=== PATIENT | female | born 1950 | race Caucasian/White ===

== ENCOUNTER → 2023-02-04 | Outpatient (REF) | payer OTHER ==
[2023-02-04 18:45] LABS: CREATININE, URINE 60.8 MG/DL; MAU/CREAT RATIO 243.4 MCG/MG (0.0-30.0)
== END ==
LOC: M LAB REF 16:58
PROVIDERS: ATTEND Nurse Practitioner Family
DX: E11.65 Type 2 diabetes mellitus with hyperglycemia (principal)
CPT/HCPCS: 82043; G0463

== ENCOUNTER → 2023-03-05 | Outpatient (REF) | payer OTHER ==
[2023-03-05 18:29] LABS: APPEARANCE, URINE HAZY (CLEAR); BACTERIA, URINE AUTO NEGATIVE (NEGATIVE); BILIRUBIN, URINE AUTO NEGATIVE (NEGATIVE); BLOOD, URINE BLOOD 3+ (NEGATIVE); COLOR, URINE YELLOW (YELLOW); GLUCOSE, URINE (UA) AUTO NEGATIVE (NEGATIVE); KETONE, URINE AUTO NEGATIVE (NEGATIVE); LEUKOCYTE ESTERASE, URINE AUTO 1+ (NEGATIVE); MUCUS, URINE SMALL (NEGATIVE); NITRITE, URINE AUTO NEGATIVE (NEGATIVE); PROTEIN, URINE AUTO 2+ mg/dL (NEGATIVE); RBC, URINE AUTO 126 /HPF (0-3); SQUAMOUS EPITHELIAL CELL UR AU 0 /HPF (0-6); UROBILINOGEN, URINE AUTO 0.2 mg/dL (0.0-2.0); WBC, URINE AUTO 13 /HPF (0-3)
== END ==
LOC: M SMT 18:01
PROVIDERS: ATTEND Urology
DX: Z87.440 Personal history of urinary (tract) infections (principal)
CPT/HCPCS: 52000; 81001; 87086; G0463

== ENCOUNTER → 2023-05-10 | Outpatient (REF) | payer OTHER ==
[~2023-05-10] MED LIST: ATOR40TA75 PO; ERGO500029 PO; GABA-282 PO; LANTINJ4 SC; LOSA100T46 PO; MIRA0.5T PO; TRAM50TA2 PO; TRUL0.5I SC; VITMTA PO; XIID5DRO OU
== END ==
LOC: M LAB REF 16:23
PROVIDERS: ATTEND Podiatrist Foot & Ankle Surgery
DX: L03.115 Cellulitis of right lower limb (principal)

== ENCOUNTER 2023-05-13 14:05 | Inpatient (IN) | payer MEDICARE, OTHER ==
[~2023-05-13] VITALS: Ht 172.7 cm; Wt 87.7 kg
[~2023-05-13 14:05] MED LIST changes: -ATOR40TA75 PO; -ERGO500029 PO; -GABA-282 PO; -LANTINJ4 SC; -LOSA100T46 PO; -MIRA0.5T PO; -TRAM50TA2 PO; -TRUL0.5I SC; +UNRESOLVED CLARIFICATION ENTRY XX SCH; -VITMTA PO; -XIID5DRO OU
[2023-05-13 14:55] VITALS: BP 151/85; TEMP 97.2; O2SAT 99
[2023-05-13] MEDS ORDERED: GLUCAGON INJ 1MG VIAL SC PRN (15:15)
[2023-05-13] MEDS ORDERED: GLUCOSE 4GM CHEW TABLET PO PRN (15:15)
[2023-05-13] MEDS ORDERED: MORPHINE 4 MG/ML 1ML VIAL IV PRN (15:15)
[2023-05-13] MEDS ORDERED: DEXTROSE 50% 50ML SYRINGE IV PRN (15:15)
[2023-05-13] MEDS ORDERED: ACETAMINOPHEN 650MG SUPP PR PRN (15:15)
[2023-05-13] MEDS ORDERED: KETOROLAC 30 MG/ML 1ML VIAL IV PRN (15:15)
[2023-05-13 15:49] LABS: BASO # 0.1 10^3/uL (0.0-0.2); BASO % 0.3 % (0.0-1.0); HEMATOCRIT 35.1 % (36.0-47.0); HEMOGLOBIN 11.6 g/dl (12.0-15.5); LYMPH # 1.5 10^3/uL (1.5-5.0); LYMPH % 4.9 % (24.0-44.0); MEAN CORPUSCULAR HEMOGLOBIN 31.6 pg (27.0-33.0); MEAN CORPUSCULAR VOLUME 95.6 fl (80.0-96.0); MONO # 1.1 10^3/uL (0.0-0.8); MONO % 3.7 % (2.0-8.0); NEUTROPHILS # 26.5 10^3/uL (1.5-8.5); NEUTROPHILS % 88.3 % (36.0-66.0); PLATELET COUNT, AUTOMATED 633 10^3/uL (150-450); RED BLOOD COUNT 3.67 10^6/uL (4.00-5.40)
[2023-05-13 15:59] LABS: INR 1.13; PROTHROMBIN TIME 14.2 SECONDS (12.5-14.5)
[2023-05-13 16:00] LABS: PARTIAL THROMBOPLASTIN TIME 35.4 SECONDS (24.8-34.2)
[2023-05-13] MEDS ORDERED: NS 1,000 ML IV ONE (16:00)
[2023-05-13 16:26] LABS: ALBUMIN 2.5 G/DL (3.2-5.2); ALKALINE PHOSPHATASE 135 U/L (46-116); ALT/SGPT 34 U/L (7.0-40); AST/SGOT 17 U/L (<34); BILIRUBIN,TOTAL 0.4 MG/DL (0.3-1.2); BLOOD UREA NITROGEN 23 MG/DL (9-23); CALCIUM LEVEL 8.6 MG/DL (8.3-10.6); CARBON DIOXIDE LEVEL 17 MMOL/L (20-31); CHLORIDE LEVEL 107 MMOL/L (98-107); CREATININE FOR GFR 1.04 MG/DL (0.55-1.30); GLOMERULAR FILTRATION RATE 55.8 (>39); GLUCOSE, FASTING 215 MG/DL (74-106); MAGNESIUM LEVEL 1.8 MG/DL (1.8-2.4); POTASSIUM SERUM 3.3 MMOL/L (3.5-5.1); SODIUM LEVEL 136 MMOL/L (136-145); TOTAL PROTEIN 6.5 G/DL (5.7-8.2)
[2023-05-13] MEDS ORDERED: propofoL 500 MG/50 ML VIAL ONE (16:37)
[2023-05-13] MEDS ORDERED: MIDAZOLAM INJ 2MG/2ML VIAL ONE (16:39)
[2023-05-13 16:42] LABS: PROCALCITONIN >50.00 ng/ml
[2023-05-13 17:06] LABS: ERYTHROCYTE SEDIMENTATION RATE > 130 mm/hr (0-30)
[2023-05-13] MEDS ORDERED: KCL 40MEQ in NS 1000ML 1,000 ML IV SCH (17:10)
[2023-05-13] MEDS ORDERED: INSULIN LISPRO (NovoLOG) PER UNIT SC SCH (18:00)
[2023-05-13] MEDS ORDERED: fentaNYL 100 MCG/2 ML INJECTION IV PRN (18:05)
[2023-05-13] MEDS ORDERED: HYDROMORPHONE HCL 0.5 MG/ 0.5 ML SYRINGE IV PRN (18:05)
[2023-05-13] MEDS ORDERED: oxyCODONE 5MG TAB PO PRN (18:05)
[2023-05-13] MEDS ORDERED: LR 1,000 ML IV SCH (18:05)
[2023-05-13] MEDS ORDERED: ONDANSETRON 4MG 2ML VIAL IV PRN (18:05)
[2023-05-13] MEDS ORDERED: ZOSYN 4.5GM VIAL As Ordered ONE (18:09)
[2023-05-13] MEDS ORDERED: LIDOCAINE 1% SDV 30ML VIAL As Ordered ONE (18:09)
[2023-05-13 18:45] VITALS: BP 142/84; TEMP 97.7; O2SAT 97
[2023-05-13 20:56] VITALS: BP 171/90; TEMP 97.2; O2SAT 97
[2023-05-13] MEDS: LEVEMIR (INSULIN DETEMIR) 1 UNITS/0.01ML SC SCH (21:00)
[2023-05-13] MEDS: INSULIN LISPRO (NovoLOG) PER UNIT SC SCH (21:00)
[2023-05-13] MEDS ORDERED: VANCOMYCIN HCL 750 MG, VIAL MATE ADAPTER 1 EACH in D5W 250 ML IV ONE (23:00)
[2023-05-13] MEDS ORDERED: traMADol 50 MG TAB PO PRN (23:40)
[2023-05-14] MEDS ORDERED: VANCOMYCIN HCL 750 MG, VIAL MATE ADAPTER 1 EACH in D5W 250 ML IV ONE ×3
[2023-05-14] MEDS ORDERED: LANTINJ4 SC ×2 (00:36)
[2023-05-14] MEDS ORDERED: TRUL0.5I SC (00:36)
[2023-05-14] MEDS ORDERED: MIRA0.5T PO (00:36)
[2023-05-14] MEDS ORDERED: TRAM50TA2 PO (00:36)
[2023-05-14] MEDS ORDERED: GABA-282 PO (00:36)
[2023-05-14] MEDS ORDERED: VITMTA PO (00:38)
[2023-05-14] MEDS ORDERED: XIID5DRO OU (00:38)
[2023-05-14] MEDS ORDERED: ATOR40TA75 PO (00:38)
[2023-05-14] MEDS ORDERED: LOSA100T46 PO (00:45)
[2023-05-14] MEDS ORDERED: ERGO500029 PO (00:45)
[2023-05-14] MEDS ORDERED: HOME MED LIST COMPLETE! XX SCH (00:50)
[2023-05-14] MEDS: FERROUS SULFATE 325MG TAB PO SCH ×2 (02:37→08:12)
[2023-05-14] MEDS: PIPERACILLIN/TAZOBACTAM SOD 4.5 GM in D5W MINI-BAG PLUS 50 ML IV SCH ×3 (03:17→18:32)
[2023-05-14 06:13] LABS: CREATININE FOR GFR 1.13 MG/DL (0.55-1.30); GLOMERULAR FILTRATION RATE 50.7 (>39); POTASSIUM SERUM 3.5 MMOL/L (3.5-5.1)
[2023-05-14 06:16] LABS: BASO # 0.1 10^3/uL (0.0-0.2); BASO % 0.2 % (0.0-1.0); EOS % 0.2 % (0.0-3.0); HEMATOCRIT 30.1 % (36.0-47.0); HEMOGLOBIN 9.9 g/dl (12.0-15.5); LYMPH # 2.5 10^3/uL (1.5-5.0); LYMPH % 9.8 % (24.0-44.0); MEAN CORPUSCULAR HEMOGLOBIN 31.7 pg (27.0-33.0); MEAN CORPUSCULAR HGB CONC 32.9 g/dl (32.0-36.5); MEAN CORPUSCULAR VOLUME 96.5 fl (80.0-96.0); MONO % 7.4 % (2.0-8.0); NEUTROPHILS # 20.5 10^3/uL (1.5-8.5); NEUTROPHILS % 79.5 % (36.0-66.0); PLATELET COUNT, AUTOMATED 574 10^3/uL (150-450); RED BLOOD COUNT 3.12 10^6/uL (4.00-5.40); WHITE BLOOD COUNT 25.7 10^3/uL (4.0-10.0)
[2023-05-14 06:48] VITALS: BP 155/79; TEMP 97.5; O2SAT 98
[2023-05-14 07:40] LABS: MONO # 1.9 10^3/uL (0.0-0.8)
[2023-05-14] MEDS ORDERED: VANCOMYCIN HCL 1,000 MG, VIAL MATE ADAPTER 1 EACH in D5W 250 ML IV SCH (08:00)
[2023-05-14] MEDS: ATORVASTATIN 20 MG TAB PO SCH (08:12)
[2023-05-14] MEDS: ASPIRIN 81MG CHEW TABLET PO SCH (08:12)
[2023-05-14] MEDS: GABAPENTIN 300 MG CAP PO SCH ×4 (08:12→20:34)
[2023-05-14] MEDS: MULTIVITAMINS/MINERALS THERAP 1 TAB PO SCH (08:12)
[2023-05-14] MEDS: LOSARTAN 50MG TABLET PO SCH (08:13)
[2023-05-14] MEDS: LEVEMIR (INSULIN DETEMIR) 1 UNITS/0.01ML SC SCH ×2 (08:13→20:34)
[2023-05-14] MEDS: INSULIN LISPRO (NovoLOG) PER UNIT SC SCH ×4 (08:14→20:34)
[2023-05-14 08:21] LABS: VANCOMYCIN RANDOM 17.9 UG/ML
[2023-05-14] MEDS ORDERED: VITAMIN D 1,000 INTERNATIONAL UNITS TABLET PO SCH (09:00)
[2023-05-14] MEDS: VANCOMYCIN HCL 500 MG in D5W MINI-BAG PLUS 100 ML IV SCH (10:45)
[2023-05-14 12:32] LABS: C REACTIVE PROTEIN QUANTITATIV 17.4 MG/DL (<1.0)
[2023-05-14 12:40] LABS: PROCALCITONIN 41.84 ng/ml
[2023-05-14 14:15] VITALS: BP 144/82; TEMP 97.8; O2SAT 98
[2023-05-14] MEDS ORDERED: POTASSIUM CHLORIDE 10MEQ SR TABLET PO ONE (15:00)
[2023-05-14] MEDS: ENOXAPARIN 40MG/0.4ML SYRINGE (J1650 PER 10MG) SC SCH (15:18)
[2023-05-14 20:00] VITALS: BP 153/65; TEMP 96.8; O2SAT 97
[2023-05-14] MEDS: PRAMIPEXOLE 0.25 MG TAB PO SCH (20:34)
[2023-05-15] MEDS: PIPERACILLIN/TAZOBACTAM SOD 4.5 GM in D5W MINI-BAG PLUS 50 ML IV SCH ×3 (03:34→17:58)
[2023-05-15 06:52] VITALS: BP 151/63; TEMP 99.1; O2SAT 95
[2023-05-15 08:30] LABS: BASO # 0.1 10^3/uL (0.0-0.2); BASO % 0.3 % (0.0-1.0); EOS # 0.1 10^3/uL (0.0-0.5); EOS % 0.6 % (0.0-3.0); HEMATOCRIT 29.5 % (36.0-47.0); HEMOGLOBIN 9.8 g/dl (12.0-15.5); LYMPH % 14.1 % (24.0-44.0); MEAN CORPUSCULAR HEMOGLOBIN 32.1 pg (27.0-33.0); MEAN CORPUSCULAR HGB CONC 33.2 g/dl (32.0-36.5); MEAN CORPUSCULAR VOLUME 96.7 fl (80.0-96.0); MONO # 1.6 10^3/uL (0.0-0.8); MONO % 7.4 % (2.0-8.0); NEUTROPHILS # 15.8 10^3/uL (1.5-8.5); NEUTROPHILS % 73.8 % (36.0-66.0); PLATELET COUNT, AUTOMATED 527 10^3/uL (150-450); RED BLOOD COUNT 3.05 10^6/uL (4.00-5.40); WHITE BLOOD COUNT 21.4 10^3/uL (4.0-10.0)
[2023-05-15 08:36] LABS: VANCOMYCIN LEVEL TROUGH 10.6 UG/ML (10.0-20.0)
[2023-05-15 08:37] LABS: BLOOD UREA NITROGEN 14 MG/DL (9-23); CALCIUM LEVEL 7.5 MG/DL (8.3-10.6); CARBON DIOXIDE LEVEL 20 MMOL/L (20-31); CHLORIDE LEVEL 108 MMOL/L (98-107); CREATININE FOR GFR 0.91 MG/DL (0.55-1.30); GLOMERULAR FILTRATION RATE > 60.0 (>39); GLUCOSE, FASTING 145 MG/DL (74-106); POTASSIUM SERUM 3.1 MMOL/L (3.5-5.1); SODIUM LEVEL 139 MMOL/L (136-145)
[2023-05-15] MEDS: LEVEMIR (INSULIN DETEMIR) 1 UNITS/0.01ML SC SCH ×2 (08:47→21:25)
[2023-05-15] MEDS: ENOXAPARIN 40MG/0.4ML SYRINGE (J1650 PER 10MG) SC SCH (08:47)
[2023-05-15 08:48] LABS: PROCALCITONIN 24.07 ng/ml
[2023-05-15] MEDS: LOSARTAN 50MG TABLET PO SCH (08:48)
[2023-05-15] MEDS: MULTIVITAMINS/MINERALS THERAP 1 TAB PO SCH (08:48)
[2023-05-15] MEDS: ASPIRIN 81MG CHEW TABLET PO SCH (08:48)
[2023-05-15] MEDS: ATORVASTATIN 20 MG TAB PO SCH (08:48)
[2023-05-15] MEDS: INSULIN LISPRO (NovoLOG) PER UNIT SC SCH ×4 (08:48→21:24)
[2023-05-15] MEDS: GABAPENTIN 300 MG CAP PO SCH ×4 (08:49→21:24)
[2023-05-15] MEDS: VANCOMYCIN HCL 1,000 MG, VIAL MATE ADAPTER 1 EACH in D5W 250 ML IV SCH (09:28)
[2023-05-15] MEDS: VANCOMYCIN HCL 500 MG in D5W MINI-BAG PLUS 100 ML IV SCH (10:51)
[2023-05-15] MEDS ORDERED: POTASSIUM CHLORIDE 10MEQ SR TABLET PO ONE ×2 (11:00→18:00)
[2023-05-15 20:00] VITALS: BP 129/68; TEMP 99.1; O2SAT 96
[2023-05-15] MEDS: PRAMIPEXOLE 0.25 MG TAB PO SCH (21:24)
[2023-05-16] MEDS: PIPERACILLIN/TAZOBACTAM SOD 4.5 GM in D5W MINI-BAG PLUS 50 ML IV SCH ×3 (02:59→18:23)
[2023-05-16 05:31] VITALS: BP 132/56; TEMP 98.6; O2SAT 93
[2023-05-16 08:24] LABS: BASO # 0.1 10^3/uL (0.0-0.2); BASO % 0.4 % (0.0-1.0); EOS # 0.1 10^3/uL (0.0-0.5); EOS % 0.4 % (0.0-3.0); HEMATOCRIT 29.3 % (36.0-47.0); HEMOGLOBIN 9.5 g/dl (12.0-15.5); LYMPH # 2.8 10^3/uL (1.5-5.0); LYMPH % 13.4 % (24.0-44.0); MEAN CORPUSCULAR HEMOGLOBIN 31.7 pg (27.0-33.0); MEAN CORPUSCULAR HGB CONC 32.4 g/dl (32.0-36.5); MEAN CORPUSCULAR VOLUME 97.7 fl (80.0-96.0); MONO % 7.6 % (2.0-8.0); NEUTROPHILS # 15.3 10^3/uL (1.5-8.5); NEUTROPHILS % 74.9 % (36.0-66.0); PLATELET COUNT, AUTOMATED 561 10^3/uL (150-450); WHITE BLOOD COUNT 20.5 10^3/uL (4.0-10.0)
[2023-05-16] MEDS: INSULIN LISPRO (NovoLOG) PER UNIT SC SCH ×4 (08:29→20:32)
[2023-05-16] MEDS: GABAPENTIN 300 MG CAP PO SCH ×4 (08:30→20:32)
[2023-05-16] MEDS: LOSARTAN 50MG TABLET PO SCH (08:30)
[2023-05-16] MEDS: LEVEMIR (INSULIN DETEMIR) 1 UNITS/0.01ML SC SCH ×2 (08:30→20:31)
[2023-05-16] MEDS: VITAMIN D 50,000 UNITS CAPSULE (ERGOCALCIFEROL 1.25MG) PO SCH (08:30)
[2023-05-16] MEDS: ATORVASTATIN 20 MG TAB PO SCH (08:30)
[2023-05-16] MEDS: MULTIVITAMINS/MINERALS THERAP 1 TAB PO SCH (08:31)
[2023-05-16 08:49] LABS: MONO # 1.6 10^3/uL (0.0-0.8)
[2023-05-16 09:00] LABS: VANCOMYCIN LEVEL TROUGH 11.9 UG/ML (10.0-20.0)
[2023-05-16 09:07] LABS: CALCIUM LEVEL 7.8 MG/DL (8.3-10.6); CREATININE FOR GFR 1.04 MG/DL (0.55-1.30); GLOMERULAR FILTRATION RATE 55.8 (>39)
[2023-05-16] MEDS: ENOXAPARIN 40MG/0.4ML SYRINGE (J1650 PER 10MG) SC SCH (09:25)
[2023-05-16] MEDS: VANCOMYCIN HCL 1,000 MG, VIAL MATE ADAPTER 1 EACH in D5W 250 ML IV SCH (09:25)
[2023-05-16] MEDS: ASPIRIN 81MG CHEW TABLET PO SCH (09:26)
[2023-05-16] MEDS: VANCOMYCIN HCL 500 MG in D5W MINI-BAG PLUS 100 ML IV SCH (10:56)
[2023-05-16 14:00] VITALS: BP 138/55; TEMP 98.8; O2SAT 95
[2023-05-16 14:58] LABS: C REACTIVE PROTEIN QUANTITATIV 13.4 MG/DL (<1.0)
[2023-05-16 20:15] VITALS: BP 157/69; TEMP 100.2; O2SAT 95
[2023-05-16 20:30] VITALS: TEMP 98.2
[2023-05-16] MEDS: PRAMIPEXOLE 0.25 MG TAB PO SCH (20:32)
[2023-05-16] MEDS: ACETAMINOPHEN TAB 650MG DOSE (2X325MG) PO PRN (20:32)
[2023-05-17] MEDS: PIPERACILLIN/TAZOBACTAM SOD 4.5 GM in D5W MINI-BAG PLUS 50 ML IV SCH ×3 (03:16→18:39)
[2023-05-17 06:12] VITALS: BP 177/73; TEMP 98.2; O2SAT 96
[2023-05-17] MEDS: INSULIN LISPRO (NovoLOG) PER UNIT SC SCH ×4 (07:30→20:47)
[2023-05-17 07:33] LABS: BASO # 0.1 10^3/uL (0.0-0.2); BASO % 0.3 % (0.0-1.0); EOS # 0.2 10^3/uL (0.0-0.5); EOS % 1.2 % (0.0-3.0); HEMATOCRIT 29.5 % (36.0-47.0); HEMOGLOBIN 9.6 g/dl (12.0-15.5); LYMPH % 11.5 % (24.0-44.0); MEAN CORPUSCULAR HGB CONC 32.5 g/dl (32.0-36.5); MEAN CORPUSCULAR VOLUME 98.3 fl (80.0-96.0); MONO % 5.9 % (2.0-8.0); NEUTROPHILS # 13.7 10^3/uL (1.5-8.5); NEUTROPHILS % 78.7 % (36.0-66.0); PLATELET COUNT, AUTOMATED 638 10^3/uL (150-450); WHITE BLOOD COUNT 17.4 10^3/uL (4.0-10.0)
[2023-05-17 07:52] LABS: CALCIUM LEVEL 7.9 MG/DL (8.3-10.6); CREATININE FOR GFR 1.04 MG/DL (0.55-1.30); GLOMERULAR FILTRATION RATE 55.8 (>39); POTASSIUM SERUM 3.6 MMOL/L (3.5-5.1)
[2023-05-17 07:58] LABS: PROCALCITONIN 6.43 ng/ml
[2023-05-17] MEDS: MULTIVITAMINS/MINERALS THERAP 1 TAB PO SCH (08:18)
[2023-05-17] MEDS: ATORVASTATIN 20 MG TAB PO SCH (08:18)
[2023-05-17] MEDS: GABAPENTIN 300 MG CAP PO SCH ×4 (08:18→20:44)
[2023-05-17] MEDS: LOSARTAN 50MG TABLET PO SCH (08:18)
[2023-05-17] MEDS: ASPIRIN 81MG CHEW TABLET PO SCH (08:20)
[2023-05-17] MEDS: LEVEMIR (INSULIN DETEMIR) 1 UNITS/0.01ML SC SCH ×2 (08:21→20:44)
[2023-05-17] MEDS: ENOXAPARIN 40MG/0.4ML SYRINGE (J1650 PER 10MG) SC SCH (08:21)
[2023-05-17 08:25] VITALS: BP 156/68
[2023-05-17 14:45] VITALS: BP 132/60; TEMP 98.6; O2SAT 96
[2023-05-17] MEDS: PRAMIPEXOLE 0.25 MG TAB PO SCH (20:44)
[2023-05-17 22:00] VITALS: BP 146/71; TEMP 99.1; O2SAT 94
[2023-05-18] MEDS: PIPERACILLIN/TAZOBACTAM SOD 4.5 GM in D5W MINI-BAG PLUS 50 ML IV SCH ×3 (02:37→18:41)
[2023-05-18 06:00] VITALS: BP 137/58; TEMP 98.8; O2SAT 95
[2023-05-18 08:05] LABS: BASO % 0.4 % (0.0-1.0); EOS # 0.2 10^3/uL (0.0-0.5); EOS % 1.9 % (0.0-3.0); HEMATOCRIT 27.5 % (36.0-47.0); HEMOGLOBIN 8.8 g/dl (12.0-15.5); LYMPH % 19.1 % (24.0-44.0); MEAN CORPUSCULAR HEMOGLOBIN 32.2 pg (27.0-33.0); MEAN CORPUSCULAR VOLUME 100.7 fl (80.0-96.0); MONO # 1.1 10^3/uL (0.0-0.8); MONO % 10.3 % (2.0-8.0); NEUTROPHILS # 6.8 10^3/uL (1.5-8.5); NEUTROPHILS % 66.4 % (36.0-66.0); PLATELET COUNT, AUTOMATED 623 10^3/uL (150-450); RED BLOOD COUNT 2.73 10^6/uL (4.00-5.40); WHITE BLOOD COUNT 10.2 10^3/uL (4.0-10.0)
[2023-05-18 08:24] LABS: CALCIUM LEVEL 7.8 MG/DL (8.3-10.6); CREATININE FOR GFR 1.08 MG/DL (0.55-1.30); GLOMERULAR FILTRATION RATE 53.4 (>39); POTASSIUM SERUM 3.7 MMOL/L (3.5-5.1)
[2023-05-18 08:33] LABS: C REACTIVE PROTEIN QUANTITATIV 6.7 MG/DL (<1.0)
[2023-05-18 08:40] LABS: PROCALCITONIN 3.1 ng/ml
[2023-05-18] MEDS: LEVEMIR (INSULIN DETEMIR) 1 UNITS/0.01ML SC SCH ×3 (08:41→20:49)
[2023-05-18] MEDS: MULTIVITAMINS/MINERALS THERAP 1 TAB PO SCH (08:41)
[2023-05-18] MEDS: ASPIRIN 81MG CHEW TABLET PO SCH (08:41)
[2023-05-18] MEDS: ENOXAPARIN 40MG/0.4ML SYRINGE (J1650 PER 10MG) SC SCH (08:41)
[2023-05-18] MEDS: ATORVASTATIN 20 MG TAB PO SCH (08:42)
[2023-05-18] MEDS: GABAPENTIN 300 MG CAP PO SCH ×4 (08:42→20:47)
[2023-05-18] MEDS: LOSARTAN 50MG TABLET PO SCH (08:42)
[2023-05-18] MEDS: INSULIN LISPRO (NovoLOG) PER UNIT SC SCH ×4 (08:46→20:49)
[2023-05-18 14:18] VITALS: BP 132/55; TEMP 98.8; O2SAT 92; O2SAT 96
[2023-05-18] MEDS: PRAMIPEXOLE 0.25 MG TAB PO SCH (20:47)
[2023-05-18] MEDS: ACETAMINOPHEN TAB 650MG DOSE (2X325MG) PO PRN (20:47)
[2023-05-18 22:00] VITALS: BP 146/65; TEMP 98.1; O2SAT 95
[2023-05-19] MEDS: PIPERACILLIN/TAZOBACTAM SOD 4.5 GM in D5W MINI-BAG PLUS 50 ML IV SCH ×3 (02:23→18:13)
[2023-05-19 06:00] VITALS: BP 143/66; TEMP 97.9; O2SAT 97
[2023-05-19 08:06] LABS: BASO # 0.1 10^3/uL (0.0-0.2); BASO % 0.6 % (0.0-1.0); EOS # 0.3 10^3/uL (0.0-0.5); EOS % 2.5 % (0.0-3.0); HEMATOCRIT 28.6 % (36.0-47.0); HEMOGLOBIN 9.1 g/dl (12.0-15.5); LYMPH # 1.9 10^3/uL (1.5-5.0); LYMPH % 18.6 % (24.0-44.0); MEAN CORPUSCULAR HEMOGLOBIN 31.8 pg (27.0-33.0); MEAN CORPUSCULAR HGB CONC 31.8 g/dl (32.0-36.5); MONO # 0.9 10^3/uL (0.0-0.8); MONO % 8.8 % (2.0-8.0); NEUTROPHILS # 6.9 10^3/uL (1.5-8.5); NEUTROPHILS % 68.5 % (36.0-66.0); PLATELET COUNT, AUTOMATED 702 10^3/uL (150-450); RED BLOOD COUNT 2.86 10^6/uL (4.00-5.40); WHITE BLOOD COUNT 10.1 10^3/uL (4.0-10.0)
[2023-05-19 08:13] LABS: BLOOD UREA NITROGEN 14 MG/DL (9-23); CALCIUM LEVEL 7.7 MG/DL (8.3-10.6); CARBON DIOXIDE LEVEL 24 MMOL/L (20-31); CHLORIDE LEVEL 107 MMOL/L (98-107); CREATININE FOR GFR 0.96 MG/DL (0.55-1.30); GLOMERULAR FILTRATION RATE > 60.0 (>39); GLUCOSE, FASTING 152 MG/DL (74-106); POTASSIUM SERUM 3.9 MMOL/L (3.5-5.1); SODIUM LEVEL 139 MMOL/L (136-145)
[2023-05-19] MEDS: LEVEMIR (INSULIN DETEMIR) 1 UNITS/0.01ML SC SCH ×2 (08:54→20:16)
[2023-05-19] MEDS: INSULIN LISPRO (NovoLOG) PER UNIT SC SCH ×4 (08:55→20:17)
[2023-05-19] MEDS: ATORVASTATIN 20 MG TAB PO SCH (08:56)
[2023-05-19] MEDS: GABAPENTIN 300 MG CAP PO SCH ×4 (08:56→20:17)
[2023-05-19] MEDS: MULTIVITAMINS/MINERALS THERAP 1 TAB PO SCH (08:56)
[2023-05-19] MEDS: LOSARTAN 50MG TABLET PO SCH (08:56)
[2023-05-19 14:20] VITALS: BP 145/58; TEMP 97.9; O2SAT 95
[2023-05-19] MEDS: PRAMIPEXOLE 0.25 MG TAB PO SCH (20:17)
[2023-05-19 22:00] VITALS: BP 152/71; TEMP 98.2; O2SAT 94
[2023-05-20] MEDS: PIPERACILLIN/TAZOBACTAM SOD 4.5 GM in D5W MINI-BAG PLUS 50 ML IV SCH ×3 (03:19→19:14)
[2023-05-20 06:00] VITALS: BP 149/70; TEMP 98.1; O2SAT 94
[2023-05-20 06:11] LABS: BASO % 0.3 % (0.0-1.0); EOS # 0.2 10^3/uL (0.0-0.5); EOS % 1.4 % (0.0-3.0); HEMATOCRIT 26.8 % (36.0-47.0); HEMOGLOBIN 8.6 g/dl (12.0-15.5); LYMPH # 2.8 10^3/uL (1.5-5.0); LYMPH % 20.7 % (24.0-44.0); MEAN CORPUSCULAR HEMOGLOBIN 31.9 pg (27.0-33.0); MEAN CORPUSCULAR HGB CONC 32.1 g/dl (32.0-36.5); MEAN CORPUSCULAR VOLUME 99.3 fl (80.0-96.0); MONO # 1.1 10^3/uL (0.0-0.8); NEUTROPHILS # 9.3 10^3/uL (1.5-8.5); NEUTROPHILS % 68.6 % (36.0-66.0); PLATELET COUNT, AUTOMATED 754 10^3/uL (150-450); WHITE BLOOD COUNT 13.5 10^3/uL (4.0-10.0)
[2023-05-20 06:30] LABS: BLOOD UREA NITROGEN 12 MG/DL (9-23); CALCIUM LEVEL 7.4 MG/DL (8.3-10.6); CARBON DIOXIDE LEVEL 26 MMOL/L (20-31); CHLORIDE LEVEL 106 MMOL/L (98-107); CREATININE FOR GFR 0.92 MG/DL (0.55-1.30); GLOMERULAR FILTRATION RATE > 60.0 (>39); GLUCOSE, FASTING 74 MG/DL (74-106); POTASSIUM SERUM 3.8 MMOL/L (3.5-5.1); SODIUM LEVEL 139 MMOL/L (136-145)
[2023-05-20 06:35] LABS: PROCALCITONIN 0.99 ng/ml
[2023-05-20] MEDS: INSULIN LISPRO (NovoLOG) PER UNIT SC SCH ×4 (07:30→20:45)
[2023-05-20 08:11] VITALS: BP 158/80; TEMP 97.9; O2SAT 92
[2023-05-20 08:45] LABS: ERYTHROCYTE SEDIMENTATION RATE 67 mm/hr (0-30)
[2023-05-20] MEDS: ATORVASTATIN 20 MG TAB PO SCH (08:52)
[2023-05-20] MEDS: GABAPENTIN 300 MG CAP PO SCH ×4 (08:52→20:58)
[2023-05-20] MEDS: MULTIVITAMINS/MINERALS THERAP 1 TAB PO SCH (08:52)
[2023-05-20] MEDS: LOSARTAN 50MG TABLET PO SCH (08:53)
[2023-05-20] MEDS: LEVEMIR (INSULIN DETEMIR) 1 UNITS/0.01ML SC SCH ×2 (08:54→20:58)
[2023-05-20] MEDS: LIDOCAINE 5% (LIDODERM) PATCH TD SCH (12:01)
[2023-05-20 14:00] VITALS: BP 104/68; TEMP 97.9; O2SAT 97
[2023-05-20 20:10] VITALS: BP 148/65; TEMP 98.1; O2SAT 95
[2023-05-20] MEDS: PRAMIPEXOLE 0.25 MG TAB PO SCH (20:58)
[2023-05-21] MEDS: PIPERACILLIN/TAZOBACTAM SOD 4.5 GM in D5W MINI-BAG PLUS 50 ML IV SCH ×3 (03:33→18:22)
[2023-05-21 05:33] VITALS: BP 153/68; TEMP 98.6; O2SAT 95
[2023-05-21] MEDS: INSULIN LISPRO (NovoLOG) PER UNIT SC SCH ×4 (08:57→21:16)
[2023-05-21] MEDS: MULTIVITAMINS/MINERALS THERAP 1 TAB PO SCH (08:58)
[2023-05-21] MEDS: LIDOCAINE 5% (LIDODERM) PATCH TD SCH (08:58)
[2023-05-21] MEDS: GABAPENTIN 300 MG CAP PO SCH ×4 (08:58→21:13)
[2023-05-21] MEDS: ATORVASTATIN 20 MG TAB PO SCH (08:58)
[2023-05-21] MEDS: LEVEMIR (INSULIN DETEMIR) 1 UNITS/0.01ML SC SCH ×2 (08:58→21:13)
[2023-05-21] MEDS: LOSARTAN 50MG TABLET PO SCH (08:59)
[2023-05-21 09:55] LABS: BASO # 0.1 10^3/uL (0.0-0.2); BASO % 0.4 % (0.0-1.0); EOS # 0.2 10^3/uL (0.0-0.5); EOS % 1.4 % (0.0-3.0); HEMATOCRIT 29.1 % (36.0-47.0); HEMOGLOBIN 9.2 g/dl (12.0-15.5); LYMPH # 2.2 10^3/uL (1.5-5.0); LYMPH % 15.7 % (24.0-44.0); MEAN CORPUSCULAR HEMOGLOBIN 31.5 pg (27.0-33.0); MEAN CORPUSCULAR HGB CONC 31.6 g/dl (32.0-36.5); MEAN CORPUSCULAR VOLUME 99.7 fl (80.0-96.0); NEUTROPHILS # 10.3 10^3/uL (1.5-8.5); NEUTROPHILS % 74.6 % (36.0-66.0); PLATELET COUNT, AUTOMATED 895 10^3/uL (150-450); RED BLOOD COUNT 2.92 10^6/uL (4.00-5.40); WHITE BLOOD COUNT 13.8 10^3/uL (4.0-10.0)
[2023-05-21 10:19] LABS: BLOOD UREA NITROGEN 10 MG/DL (9-23); CALCIUM LEVEL 7.9 MG/DL (8.3-10.6); CARBON DIOXIDE LEVEL 29 MMOL/L (20-31); CHLORIDE LEVEL 106 MMOL/L (98-107); CREATININE FOR GFR 0.84 MG/DL (0.55-1.30); GLOMERULAR FILTRATION RATE > 60.0 (>39); GLUCOSE, FASTING 165 MG/DL (74-106); POTASSIUM SERUM 4.2 MMOL/L (3.5-5.1); SODIUM LEVEL 138 MMOL/L (136-145)
[2023-05-21] MEDS: ASPIRIN 81MG ENTERIC TABLET PO SCH (13:24)
[2023-05-21] MEDS: LACTOBACILLUS ACIDOPHILUS CAP (BACID) PO SCH ×2 (18:11→21:13)
[2023-05-21 21:05] VITALS: BP 166/67; TEMP 98.8; O2SAT 95
[2023-05-21] MEDS: PRAMIPEXOLE 0.25 MG TAB PO SCH (21:14)
[2023-05-22] MEDS: PIPERACILLIN/TAZOBACTAM SOD 4.5 GM in D5W MINI-BAG PLUS 50 ML IV SCH ×3 (03:21→18:14)
[2023-05-22 05:20] VITALS: BP 159/69; TEMP 98.6; O2SAT 95
[2023-05-22 06:10] LABS: BASO # 0.1 10^3/uL (0.0-0.2); BASO % 0.4 % (0.0-1.0); EOS # 0.2 10^3/uL (0.0-0.5); EOS % 1.5 % (0.0-3.0); HEMATOCRIT 27.2 % (36.0-47.0); HEMOGLOBIN 8.5 g/dl (12.0-15.5); LYMPH # 2.4 10^3/uL (1.5-5.0); LYMPH % 17.7 % (24.0-44.0); MEAN CORPUSCULAR HEMOGLOBIN 31.3 pg (27.0-33.0); MEAN CORPUSCULAR HGB CONC 31.3 g/dl (32.0-36.5); MONO # 1.1 10^3/uL (0.0-0.8); MONO % 8.4 % (2.0-8.0); NEUTROPHILS # 9.7 10^3/uL (1.5-8.5); NEUTROPHILS % 71.3 % (36.0-66.0); PLATELET COUNT, AUTOMATED 879 10^3/uL (150-450); RED BLOOD COUNT 2.72 10^6/uL (4.00-5.40); WHITE BLOOD COUNT 13.6 10^3/uL (4.0-10.0)
[2023-05-22 06:26] LABS: ERYTHROCYTE SEDIMENTATION RATE 61 mm/hr (0-30)
[2023-05-22 06:38] LABS: BLOOD UREA NITROGEN 10 MG/DL (9-23); CALCIUM LEVEL 7.6 MG/DL (8.3-10.6); CARBON DIOXIDE LEVEL 29 MMOL/L (20-31); CHLORIDE LEVEL 108 MMOL/L (98-107); CREATININE FOR GFR 0.85 MG/DL (0.55-1.30); GLOMERULAR FILTRATION RATE > 60.0 (>39); GLUCOSE, FASTING 75 MG/DL (74-106); POTASSIUM SERUM 4.2 MMOL/L (3.5-5.1); SODIUM LEVEL 141 MMOL/L (136-145)
[2023-05-22 06:45] LABS: PROCALCITONIN 0.33 ng/ml
[2023-05-22] MEDS: INSULIN LISPRO (NovoLOG) PER UNIT SC SCH ×4 (07:30→20:50)
[2023-05-22] MEDS: LACTOBACILLUS ACIDOPHILUS CAP (BACID) PO SCH ×4 (08:30→21:06)
[2023-05-22] MEDS: GABAPENTIN 300 MG CAP PO SCH ×4 (08:30→21:06)
[2023-05-22] MEDS: ATORVASTATIN 20 MG TAB PO SCH (08:30)
[2023-05-22] MEDS: LOSARTAN 50MG TABLET PO SCH (08:31)
[2023-05-22] MEDS: MULTIVITAMINS/MINERALS THERAP 1 TAB PO SCH (08:31)
[2023-05-22] MEDS: ASPIRIN 81MG ENTERIC TABLET PO SCH (08:31)
[2023-05-22] MEDS: LIDOCAINE 5% (LIDODERM) PATCH TD SCH (08:34)
[2023-05-22] MEDS ORDERED: LEVEMIR (INSULIN DETEMIR) 1 UNITS/0.01ML SC SCH (09:00)
[2023-05-22 14:00] VITALS: BP 137/69; TEMP 98.7; O2SAT 95
[2023-05-22] MEDS: guaiFENesin 200 MG TAB PO PRN (17:15)
[2023-05-22 20:32] VITALS: BP 138/63; TEMP 98.6; O2SAT 96
[2023-05-22] MEDS: LEVEMIR (INSULIN DETEMIR) 1 UNITS/0.01ML SC SCH (21:06)
[2023-05-22] MEDS: PRAMIPEXOLE 0.25 MG TAB PO SCH (21:06)
[2023-05-23] MEDS: PIPERACILLIN/TAZOBACTAM SOD 4.5 GM in D5W MINI-BAG PLUS 50 ML IV SCH ×2 (03:19→11:08)
[2023-05-23 05:43] VITALS: BP 158/66; TEMP 97.3; O2SAT 95
[2023-05-23 06:48] LABS: BASO # 0.1 10^3/uL (0.0-0.2); BASO % 0.7 % (0.0-1.0); EOS # 0.3 10^3/uL (0.0-0.5); EOS % 1.9 % (0.0-3.0); HEMATOCRIT 26.8 % (36.0-47.0); HEMOGLOBIN 8.5 g/dl (12.0-15.5); LYMPH # 2.5 10^3/uL (1.5-5.0); LYMPH % 18.8 % (24.0-44.0); MEAN CORPUSCULAR HEMOGLOBIN 31.6 pg (27.0-33.0); MEAN CORPUSCULAR HGB CONC 31.7 g/dl (32.0-36.5); MEAN CORPUSCULAR VOLUME 99.6 fl (80.0-96.0); MONO % 7.2 % (2.0-8.0); NEUTROPHILS # 9.6 10^3/uL (1.5-8.5); NEUTROPHILS % 70.9 % (36.0-66.0); PLATELET COUNT, AUTOMATED 871 10^3/uL (150-450); RED BLOOD COUNT 2.69 10^6/uL (4.00-5.40); WHITE BLOOD COUNT 13.5 10^3/uL (4.0-10.0)
[2023-05-23 07:13] LABS: BLOOD UREA NITROGEN 11 MG/DL (9-23); CALCIUM LEVEL 7.7 MG/DL (8.3-10.6); CARBON DIOXIDE LEVEL 27 MMOL/L (20-31); CHLORIDE LEVEL 105 MMOL/L (98-107); CREATININE FOR GFR 0.88 MG/DL (0.55-1.30); GLOMERULAR FILTRATION RATE > 60.0 (>39); GLUCOSE, FASTING 120 MG/DL (74-106); POTASSIUM SERUM 4.1 MMOL/L (3.5-5.1); SODIUM LEVEL 140 MMOL/L (136-145)
[2023-05-23] MEDS: INSULIN LISPRO (NovoLOG) PER UNIT SC SCH ×4 (08:38→20:18)
[2023-05-23] MEDS: LIDOCAINE 5% (LIDODERM) PATCH TD SCH (08:38)
[2023-05-23] MEDS: GABAPENTIN 300 MG CAP PO SCH ×4 (08:39→20:18)
[2023-05-23] MEDS: ATORVASTATIN 20 MG TAB PO SCH (08:39)
[2023-05-23] MEDS: LACTOBACILLUS ACIDOPHILUS CAP (BACID) PO SCH ×4 (08:39→20:18)
[2023-05-23] MEDS: VITAMIN D 50,000 UNITS CAPSULE (ERGOCALCIFEROL 1.25MG) PO SCH (08:39)
[2023-05-23] MEDS: ASPIRIN 81MG ENTERIC TABLET PO SCH (08:39)
[2023-05-23] MEDS: MULTIVITAMINS/MINERALS THERAP 1 TAB PO SCH (08:39)
[2023-05-23] MEDS: LOSARTAN 50MG TABLET PO SCH (08:42)
[2023-05-23] MEDS ORDERED: LEVEMIR (INSULIN DETEMIR) 1 UNITS/0.01ML SC SCH (09:00)
[2023-05-23 11:57] LABS: IRON (FE) 14 UG/DL (50-170); PERCENT SATURATION 6.6 % (13.2-45.0); TOTAL IRON BINDING CAPACITY 212 UG/DL (250-425)
[2023-05-23 11:58] LABS: FERRITIN 280.3 NG/ML (7.3-270.7)
[2023-05-23 11:59] LABS: FOLATE 19.9 NG/ML (>5.4)
[2023-05-23 12:00] LABS: VITAMIN B12 LEVEL 443 PG/ML (211-911)
[2023-05-23 14:00] VITALS: BP 137/66; TEMP 97.3; O2SAT 96
[2023-05-23] MEDS: ACETAMINOPHEN TAB 650MG DOSE (2X325MG) PO PRN (17:34)
[2023-05-23 19:50] VITALS: BP 156/70; TEMP 98.6; O2SAT 96
[2023-05-23] MEDS: PRAMIPEXOLE 0.25 MG TAB PO SCH (20:18)
[2023-05-23] MEDS: LEVEMIR (INSULIN DETEMIR) 1 UNITS/0.01ML SC SCH (20:22)
[2023-05-23] MEDS: guaiFENesin 200 MG TAB PO PRN (20:22)
[2023-05-24] MEDS: guaiFENesin 200 MG TAB PO PRN (04:20)
[2023-05-24 05:40] VITALS: BP 160/73; TEMP 98.6; O2SAT 94
[2023-05-24 07:52] LABS: BASO # 0.1 10^3/uL (0.0-0.2); BASO % 0.6 % (0.0-1.0); EOS # 0.2 10^3/uL (0.0-0.5); EOS % 1.2 % (0.0-3.0); HEMATOCRIT 28.2 % (36.0-47.0); LYMPH % 11.8 % (24.0-44.0); MEAN CORPUSCULAR HEMOGLOBIN 31.8 pg (27.0-33.0); MEAN CORPUSCULAR HGB CONC 31.9 g/dl (32.0-36.5); MEAN CORPUSCULAR VOLUME 99.6 fl (80.0-96.0); MONO # 1.2 10^3/uL (0.0-0.8); MONO % 7.1 % (2.0-8.0); NEUTROPHILS # 13.7 10^3/uL (1.5-8.5); NEUTROPHILS % 78.8 % (36.0-66.0); PLATELET COUNT, AUTOMATED 913 10^3/uL (150-450); RED BLOOD COUNT 2.83 10^6/uL (4.00-5.40); WHITE BLOOD COUNT 17.3 10^3/uL (4.0-10.0)
[2023-05-24] MEDS: INSULIN LISPRO (NovoLOG) PER UNIT SC SCH ×4 (08:00→20:08)
[2023-05-24 08:09] LABS: INR 1.26; PROTHROMBIN TIME 15.4 SECONDS (12.5-14.5)
[2023-05-24 08:10] LABS: ERYTHROCYTE SEDIMENTATION RATE > 130 mm/hr (0-30)
[2023-05-24 08:13] LABS: BLOOD UREA NITROGEN 10 MG/DL (9-23); CALCIUM LEVEL 7.8 MG/DL (8.3-10.6); CARBON DIOXIDE LEVEL 27 MMOL/L (20-31); CHLORIDE LEVEL 106 MMOL/L (98-107); CREATININE FOR GFR 0.77 MG/DL (0.55-1.30); GLOMERULAR FILTRATION RATE > 60.0 (>39); GLUCOSE, FASTING 107 MG/DL (74-106); MAGNESIUM LEVEL 1.7 MG/DL (1.8-2.4); POTASSIUM SERUM 4.1 MMOL/L (3.5-5.1); SODIUM LEVEL 141 MMOL/L (136-145)
[2023-05-24] MEDS ORDERED: FERRIC CARBOXYMALTOSE INJ 750 MG, VIAL MATE ADAPTER 1 EACH in NS 250 ML IV ONE (10:00)
[2023-05-24] MEDS: MULTIVITAMINS/MINERALS THERAP 1 TAB PO SCH (10:20)
[2023-05-24] MEDS: ASPIRIN 81MG ENTERIC TABLET PO SCH (10:20)
[2023-05-24] MEDS: GABAPENTIN 300 MG CAP PO SCH ×4 (10:21→20:09)
[2023-05-24] MEDS: ATORVASTATIN 20 MG TAB PO SCH (10:21)
[2023-05-24] MEDS: LACTOBACILLUS ACIDOPHILUS CAP (BACID) PO SCH ×4 (10:21→20:09)
[2023-05-24] MEDS: LEVEMIR (INSULIN DETEMIR) 1 UNITS/0.01ML SC SCH ×2 (10:22→20:09)
[2023-05-24] MEDS: LOSARTAN 50MG TABLET PO SCH (10:22)
[2023-05-24] MEDS: LIDOCAINE 5% (LIDODERM) PATCH TD SCH (10:23)
[2023-05-24] MEDS ORDERED: ceFAZolin SOD 2 GM in IV 1 EA IV ONE (11:25)
[2023-05-24] MEDS ORDERED: NS 1,000 ML IV SCH ×2 (11:25→16:45)
[2023-05-24] MEDS ORDERED: MAG SULF 1GM/100ML (MAG RUN) 1 GM in IV 1 EA IV ONE (12:00)
[2023-05-24] MEDS ORDERED: ISOVUE-300 61% 100ML VIAL As Ordered ONE (12:22)
[2023-05-24] MEDS ORDERED: LIDOCAINE 1% MDV 20ML VIAL As Ordered ONE (12:22)
[2023-05-24] MEDS ORDERED: MIDAZOLAM INJ 2MG/2ML VIAL As Ordered ONE (12:23)
[2023-05-24] MEDS ORDERED: fentaNYL 100 MCG/2 ML INJECTION As Ordered ONE (12:23)
[2023-05-24] MEDS ORDERED: HEPARIN 1,000UNITS/ML 10ML VIAL (FOR RADIOLOGY & DIALYSIS ONLY) As Ordered ONE (12:24)
[2023-05-24] MEDS ORDERED: ceFAZolin 2 GM/D5W 50 ML IV BAG As Ordered ONE (12:25)
[2023-05-24] MEDS: PIPERACILLIN/TAZOBACTAM SOD 3.375 GM in D5W MINI-BAG PLUS 50 ML IV SCH ×2 (13:06→18:42)
[2023-05-24] MEDS ORDERED: hydrALAZINE 20MG/ML 1ML VIAL As Ordered ONE (14:15)
[2023-05-24] MEDS ORDERED: CLOPIDOGREL 300 MG TAB (PLAVIX) PO STA (14:55)
[2023-05-24] MEDS ORDERED: CLOPIDOGREL 300 MG TAB (PLAVIX) As Ordered ONE (15:30)
[2023-05-24 16:45] VITALS: BP 167/77; TEMP 97.9; O2SAT 96
[2023-05-24 17:15] VITALS: BP 165/78; TEMP 98.1; O2SAT 94
[2023-05-24] MEDS: ACETAMINOPHEN TAB 650MG DOSE (2X325MG) PO PRN (17:30)
[2023-05-24] MEDS: NS 1,000 ML IV SCH (18:42)
[2023-05-24] MEDS: PRAMIPEXOLE 0.25 MG TAB PO SCH (20:09)
[2023-05-24 22:00] VITALS: BP 120/53; TEMP 97.9; O2SAT 96
[2023-05-25] MEDS: guaiFENesin 200 MG TAB PO PRN ×3 (01:15→18:21)
[2023-05-25] MEDS: ACETAMINOPHEN TAB 650MG DOSE (2X325MG) PO PRN ×3 (01:15→20:28)
[2023-05-25] MEDS: PIPERACILLIN/TAZOBACTAM SOD 3.375 GM in D5W MINI-BAG PLUS 50 ML IV SCH ×4 (01:15→18:21)
[2023-05-25 06:00] VITALS: BP 146/64; TEMP 97.5; O2SAT 93
[2023-05-25 07:27] LABS: BASO # 0.1 10^3/uL (0.0-0.2); BASO % 0.5 % (0.0-1.0); EOS # 0.2 10^3/uL (0.0-0.5); EOS % 1.9 % (0.0-3.0); HEMATOCRIT 27.1 % (36.0-47.0); HEMOGLOBIN 8.3 g/dl (12.0-15.5); LYMPH # 1.7 10^3/uL (1.5-5.0); LYMPH % 15.6 % (24.0-44.0); MEAN CORPUSCULAR HEMOGLOBIN 31.4 pg (27.0-33.0); MEAN CORPUSCULAR HGB CONC 30.6 g/dl (32.0-36.5); MEAN CORPUSCULAR VOLUME 102.7 fl (80.0-96.0); MONO # 0.9 10^3/uL (0.0-0.8); MONO % 8.5 % (2.0-8.0); PLATELET COUNT, AUTOMATED 817 10^3/uL (150-450); RED BLOOD COUNT 2.64 10^6/uL (4.00-5.40)
[2023-05-25 07:48] LABS: BLOOD UREA NITROGEN 12 MG/DL (9-23); CALCIUM LEVEL 7.8 MG/DL (8.3-10.6); CARBON DIOXIDE LEVEL 28 MMOL/L (20-31); CHLORIDE LEVEL 107 MMOL/L (98-107); CREATININE FOR GFR 0.95 MG/DL (0.55-1.30); GLOMERULAR FILTRATION RATE > 60.0 (>39); GLUCOSE, FASTING 129 MG/DL (74-106); POTASSIUM SERUM 4.1 MMOL/L (3.5-5.1); SODIUM LEVEL 143 MMOL/L (136-145)
[2023-05-25] MEDS: NS 1,000 ML IV SCH (08:50)
[2023-05-25] MEDS: LACTOBACILLUS ACIDOPHILUS CAP (BACID) PO SCH ×4 (08:50→20:27)
[2023-05-25] MEDS: GABAPENTIN 300 MG CAP PO SCH ×4 (08:50→20:27)
[2023-05-25] MEDS: ASPIRIN 81MG ENTERIC TABLET PO SCH (08:50)
[2023-05-25] MEDS: MULTIVITAMINS/MINERALS THERAP 1 TAB PO SCH (08:50)
[2023-05-25] MEDS: INSULIN LISPRO (NovoLOG) PER UNIT SC SCH ×4 (08:50→21:00)
[2023-05-25] MEDS: CLOPIDOGREL 75 MG TAB PO SCH (08:50)
[2023-05-25] MEDS: ATORVASTATIN 20 MG TAB PO SCH (08:51)
[2023-05-25] MEDS: LEVEMIR (INSULIN DETEMIR) 1 UNITS/0.01ML SC SCH ×2 (08:51→20:30)
[2023-05-25] MEDS: LOSARTAN 50MG TABLET PO SCH (08:51)
[2023-05-25] MEDS: LIDOCAINE 5% (LIDODERM) PATCH TD SCH (08:52)
[2023-05-25] MEDS ORDERED: VITAMIN D (CHOLECALCIFEROL) 400 INTERNATIONAL UNITS TAB PO SCH (09:00)
[2023-05-25] MEDS ORDERED: ONDANSETRON 4MG ORAL DISINTEGRATING TAB SL PRN (09:25)
[2023-05-25 13:45] VITALS: BP 140/62; TEMP 100.7; O2SAT 91
[2023-05-25 16:19] LABS: HEMATOCRIT 25.1 % (36.0-47.0); MEAN CORPUSCULAR HEMOGLOBIN 32.5 pg (27.0-33.0); MEAN CORPUSCULAR HGB CONC 31.9 g/dl (32.0-36.5); PLATELET COUNT, AUTOMATED 803 10^3/uL (150-450); RED BLOOD COUNT 2.46 10^6/uL (4.00-5.40); WHITE BLOOD COUNT 14.3 10^3/uL (4.0-10.0)
[2023-05-25 17:59] VITALS: TEMP 99.6
[2023-05-25 20:00] VITALS: BP 143/60; TEMP 98.1; O2SAT 95
[2023-05-25] MEDS: PRAMIPEXOLE 0.25 MG TAB PO SCH (20:27)
[2023-05-26] VITALS (8 sets, daily range): BP systolic 142–177; BP diastolic 64–85; TEMP 97.9–98.6; O2SAT 93–97
[2023-05-26] MEDS: PIPERACILLIN/TAZOBACTAM SOD 3.375 GM in D5W MINI-BAG PLUS 50 ML IV SCH ×2 (01:19→06:52)
[2023-05-26 07:27] LABS: BASO # 0.1 10^3/uL (0.0-0.2); BASO % 0.7 % (0.0-1.0); EOS # 0.3 10^3/uL (0.0-0.5); EOS % 3.5 % (0.0-3.0); HEMATOCRIT 22.9 % (36.0-47.0); LYMPH # 2.3 10^3/uL (1.5-5.0); MEAN CORPUSCULAR HEMOGLOBIN 31.3 pg (27.0-33.0); MEAN CORPUSCULAR HGB CONC 30.6 g/dl (32.0-36.5); MEAN CORPUSCULAR VOLUME 102.2 fl (80.0-96.0); MONO # 0.9 10^3/uL (0.0-0.8); MONO % 8.9 % (2.0-8.0); NEUTROPHILS % 62.5 % (36.0-66.0); PLATELET COUNT, AUTOMATED 741 10^3/uL (150-450); RED BLOOD COUNT 2.24 10^6/uL (4.00-5.40); WHITE BLOOD COUNT 9.5 10^3/uL (4.0-10.0)
[2023-05-26] MEDS: INSULIN LISPRO (NovoLOG) PER UNIT SC SCH ×4 (07:30→20:49)
[2023-05-26 07:43] LABS: ERYTHROCYTE SEDIMENTATION RATE 46 mm/hr (0-30)
[2023-05-26 07:51] LABS: BLOOD UREA NITROGEN 11 MG/DL (9-23); CALCIUM LEVEL 7.6 MG/DL (8.3-10.6); CARBON DIOXIDE LEVEL 27 MMOL/L (20-31); CHLORIDE LEVEL 106 MMOL/L (98-107); CREATININE FOR GFR 0.89 MG/DL (0.55-1.30); GLOMERULAR FILTRATION RATE > 60.0 (>39); GLUCOSE, FASTING 131 MG/DL (74-106); POTASSIUM SERUM 3.9 MMOL/L (3.5-5.1); SODIUM LEVEL 139 MMOL/L (136-145)
[2023-05-26] MEDS: ACETAMINOPHEN TAB 650MG DOSE (2X325MG) PO PRN (09:03)
[2023-05-26] MEDS: GABAPENTIN 300 MG CAP PO SCH ×4 (09:03→20:48)
[2023-05-26] MEDS: ASPIRIN 81MG ENTERIC TABLET PO SCH (09:03)
[2023-05-26] MEDS: LACTOBACILLUS ACIDOPHILUS CAP (BACID) PO SCH ×4 (09:03→20:48)
[2023-05-26] MEDS: ATORVASTATIN 20 MG TAB PO SCH (09:03)
[2023-05-26] MEDS: CLOPIDOGREL 75 MG TAB PO SCH (09:03)
[2023-05-26] MEDS: LEVEMIR (INSULIN DETEMIR) 1 UNITS/0.01ML SC SCH ×2 (09:04→20:48)
[2023-05-26] MEDS: LOSARTAN 50MG TABLET PO SCH (09:04)
[2023-05-26] MEDS: MULTIVITAMINS/MINERALS THERAP 1 TAB PO SCH (09:04)
[2023-05-26] MEDS: LIDOCAINE 5% (LIDODERM) PATCH TD SCH (09:05)
[2023-05-26 10:41] LABS: PROCALCITONIN 0.26 ng/ml
[2023-05-26] MEDS: AUGMENTIN 875 MG TAB PO SCH ×2 (11:30→20:48)
[2023-05-26] MEDS ORDERED: FUROSEMIDE 40MG/4ML VIAL IV ONE (15:15)
[2023-05-26] MEDS: BACLOFEN 5MG PER 1/2 TABLET PO PRN (15:55)
[2023-05-26 16:21] LABS: HEMATOCRIT 26.8 % (36.0-47.0); HEMOGLOBIN 8.4 g/dl (12.0-15.5); MEAN CORPUSCULAR HEMOGLOBIN 30.4 pg (27.0-33.0); MEAN CORPUSCULAR HGB CONC 31.3 g/dl (32.0-36.5); MEAN CORPUSCULAR VOLUME 97.1 fl (80.0-96.0); PLATELET COUNT, AUTOMATED 754 10^3/uL (150-450); RED BLOOD COUNT 2.76 10^6/uL (4.00-5.40); WHITE BLOOD COUNT 10.4 10^3/uL (4.0-10.0)
[2023-05-26] MEDS: PRAMIPEXOLE 0.25 MG TAB PO SCH (20:48)
[2023-05-27] MEDS: BENZONATATE 100MG CAPSULE PO PRN ×2 (02:12→21:17)
[2023-05-27 05:55] VITALS: BP 138/53; TEMP 98.1; O2SAT 95
[2023-05-27 07:04] LABS: BASO # 0.1 10^3/uL (0.0-0.2); BASO % 0.7 % (0.0-1.0); EOS # 0.3 10^3/uL (0.0-0.5); EOS % 3.2 % (0.0-3.0); HEMATOCRIT 25.9 % (36.0-47.0); HEMOGLOBIN 8.2 g/dl (12.0-15.5); LYMPH # 2.1 10^3/uL (1.5-5.0); LYMPH % 21.3 % (24.0-44.0); MEAN CORPUSCULAR HEMOGLOBIN 30.8 pg (27.0-33.0); MEAN CORPUSCULAR HGB CONC 31.7 g/dl (32.0-36.5); MEAN CORPUSCULAR VOLUME 97.4 fl (80.0-96.0); MONO # 0.8 10^3/uL (0.0-0.8); MONO % 8.5 % (2.0-8.0); NEUTROPHILS # 6.5 10^3/uL (1.5-8.5); NEUTROPHILS % 65.9 % (36.0-66.0); PLATELET COUNT, AUTOMATED 705 10^3/uL (150-450); RED BLOOD COUNT 2.66 10^6/uL (4.00-5.40); WHITE BLOOD COUNT 9.8 10^3/uL (4.0-10.0)
[2023-05-27 07:28] LABS: BLOOD UREA NITROGEN 8 MG/DL (9-23); CALCIUM LEVEL 7.8 MG/DL (8.3-10.6); CARBON DIOXIDE LEVEL 31 MMOL/L (20-31); CHLORIDE LEVEL 108 MMOL/L (98-107); CREATININE FOR GFR 0.79 MG/DL (0.55-1.30); GLOMERULAR FILTRATION RATE > 60.0 (>39); GLUCOSE, FASTING 117 MG/DL (74-106); POTASSIUM SERUM 3.5 MMOL/L (3.5-5.1); SODIUM LEVEL 143 MMOL/L (136-145)
[2023-05-27] MEDS: LEVEMIR (INSULIN DETEMIR) 1 UNITS/0.01ML SC SCH ×2 (08:25→21:04)
[2023-05-27] MEDS: INSULIN LISPRO (NovoLOG) PER UNIT SC SCH ×4 (08:25→21:03)
[2023-05-27] MEDS: AUGMENTIN 875 MG TAB PO SCH ×2 (08:28→21:04)
[2023-05-27] MEDS: ATORVASTATIN 20 MG TAB PO SCH (08:28)
[2023-05-27] MEDS: ASPIRIN 81MG ENTERIC TABLET PO SCH (08:28)
[2023-05-27] MEDS: LACTOBACILLUS ACIDOPHILUS CAP (BACID) PO SCH ×4 (08:28→21:04)
[2023-05-27] MEDS: CLOPIDOGREL 75 MG TAB PO SCH (08:28)
[2023-05-27] MEDS: MULTIVITAMINS/MINERALS THERAP 1 TAB PO SCH (08:28)
[2023-05-27] MEDS: LOSARTAN 50MG TABLET PO SCH (08:28)
[2023-05-27] MEDS: GABAPENTIN 300 MG CAP PO SCH ×4 (08:28→21:04)
[2023-05-27] MEDS: LIDOCAINE 5% (LIDODERM) PATCH TD SCH (08:29)
[2023-05-27] MEDS: ENOXAPARIN 40MG/0.4ML SYRINGE (J1650 PER 10MG) SC SCH (12:34)
[2023-05-27 14:10] VITALS: BP 165/75; TEMP 97.9; O2SAT 91
[2023-05-27 14:17] VITALS: BP 162/60
[2023-05-27] MEDS: DIAPER RELIEF PASTE (DESITIN) 60GM TOP SCH ×2 (15:11→21:02)
[2023-05-27 20:00] VITALS: BP 159/66; TEMP 98.4; O2SAT 94
[2023-05-27] MEDS: PRAMIPEXOLE 0.25 MG TAB PO SCH (21:04)
[2023-05-27] MEDS: ACETAMINOPHEN TAB 650MG DOSE (2X325MG) PO PRN (21:17)
[2023-05-28 05:36] VITALS: BP 179/81; TEMP 97.9; O2SAT 96
[2023-05-28 07:38] LABS: HEMATOCRIT 28.2 % (36.0-47.0); HEMOGLOBIN 8.6 g/dl (12.0-15.5); MEAN CORPUSCULAR HEMOGLOBIN 30.1 pg (27.0-33.0); MEAN CORPUSCULAR HGB CONC 30.5 g/dl (32.0-36.5); MEAN CORPUSCULAR VOLUME 98.6 fl (80.0-96.0); PLATELET COUNT, AUTOMATED 710 10^3/uL (150-450); RED BLOOD COUNT 2.86 10^6/uL (4.00-5.40); WHITE BLOOD COUNT 9.4 10^3/uL (4.0-10.0)
[2023-05-28] MEDS: LEVEMIR (INSULIN DETEMIR) 1 UNITS/0.01ML SC SCH ×2 (07:55→22:13)
[2023-05-28] MEDS: ASPIRIN 81MG ENTERIC TABLET PO SCH (07:59)
[2023-05-28] MEDS: ATORVASTATIN 20 MG TAB PO SCH (07:59)
[2023-05-28] MEDS: GABAPENTIN 300 MG CAP PO SCH ×4 (07:59→22:12)
[2023-05-28] MEDS: CLOPIDOGREL 75 MG TAB PO SCH (07:59)
[2023-05-28] MEDS: INSULIN LISPRO (NovoLOG) PER UNIT SC SCH ×4 (07:59→21:00)
[2023-05-28] MEDS: LACTOBACILLUS ACIDOPHILUS CAP (BACID) PO SCH ×4 (07:59→22:12)
[2023-05-28 08:00] LABS: ERYTHROCYTE SEDIMENTATION RATE 105 mm/hr (0-30)
[2023-05-28] MEDS: LOSARTAN 50MG TABLET PO SCH (08:00)
[2023-05-28] MEDS: ENOXAPARIN 40MG/0.4ML SYRINGE (J1650 PER 10MG) SC SCH (08:00)
[2023-05-28] MEDS: AUGMENTIN 875 MG TAB PO SCH ×2 (08:00→22:12)
[2023-05-28] MEDS: MULTIVITAMINS/MINERALS THERAP 1 TAB PO SCH (08:00)
[2023-05-28] MEDS: DIAPER RELIEF PASTE (DESITIN) 60GM TOP SCH ×2 (08:01→22:14)
[2023-05-28] MEDS: LIDOCAINE 5% (LIDODERM) PATCH TD SCH (08:01)
[2023-05-28] MEDS: amLODIPine 5 MG TAB PO SCH (10:53)
[2023-05-28 12:32] VITALS: BP 165/78
[2023-05-28 14:05] VITALS: BP 143/68; TEMP 98.4; O2SAT 94
[2023-05-28 20:30] VITALS: BP 150/72; TEMP 97.7; O2SAT 98
[2023-05-28 22:10] VITALS: BP 148/73
[2023-05-28] MEDS: PRAMIPEXOLE 0.25 MG TAB PO SCH (22:11)
[2023-05-28] MEDS: **hydrALAZINE HCL** 25 MG TAB PO SCH (22:12)
[2023-05-28] MEDS: ACETAMINOPHEN TAB 650MG DOSE (2X325MG) PO PRN (22:24)
[2023-05-28] MEDS: BENZONATATE 100MG CAPSULE PO PRN (22:24)
[2023-05-29 06:05] VITALS: BP 150/71; TEMP 97.9; O2SAT 95
[2023-05-29] MEDS: **hydrALAZINE HCL** 25 MG TAB PO SCH ×3 (06:14→20:57)
[2023-05-29 07:42] LABS: HEMATOCRIT 27.1 % (36.0-47.0); HEMOGLOBIN 8.2 g/dl (12.0-15.5); MEAN CORPUSCULAR HEMOGLOBIN 30.4 pg (27.0-33.0); MEAN CORPUSCULAR HGB CONC 30.3 g/dl (32.0-36.5); MEAN CORPUSCULAR VOLUME 100.4 fl (80.0-96.0); PLATELET COUNT, AUTOMATED 639 10^3/uL (150-450); WHITE BLOOD COUNT 8.3 10^3/uL (4.0-10.0)
[2023-05-29] MEDS: GABAPENTIN 300 MG CAP PO SCH ×4 (08:02→20:57)
[2023-05-29] MEDS: ATORVASTATIN 20 MG TAB PO SCH (08:02)
[2023-05-29] MEDS: ASPIRIN 81MG ENTERIC TABLET PO SCH (08:03)
[2023-05-29] MEDS: LOSARTAN 50MG TABLET PO SCH (08:04)
[2023-05-29] MEDS: AUGMENTIN 875 MG TAB PO SCH ×2 (08:05→20:57)
[2023-05-29] MEDS: MULTIVITAMINS/MINERALS THERAP 1 TAB PO SCH (08:05)
[2023-05-29] MEDS: LACTOBACILLUS ACIDOPHILUS CAP (BACID) PO SCH ×4 (08:05→20:57)
[2023-05-29] MEDS: amLODIPine 5 MG TAB PO SCH (08:06)
[2023-05-29] MEDS: CLOPIDOGREL 75 MG TAB PO SCH (08:06)
[2023-05-29 08:07] LABS: BLOOD UREA NITROGEN 11 MG/DL (9-23); CALCIUM LEVEL 8.1 MG/DL (8.3-10.6); CARBON DIOXIDE LEVEL 30 MMOL/L (20-31); CHLORIDE LEVEL 103 MMOL/L (98-107); CREATININE FOR GFR 0.77 MG/DL (0.55-1.30); GLOMERULAR FILTRATION RATE > 60.0 (>39); GLUCOSE, FASTING 144 MG/DL (74-106); POTASSIUM SERUM 3.9 MMOL/L (3.5-5.1); SODIUM LEVEL 139 MMOL/L (136-145)
[2023-05-29] MEDS: ENOXAPARIN 40MG/0.4ML SYRINGE (J1650 PER 10MG) SC SCH (08:08)
[2023-05-29] MEDS: INSULIN LISPRO (NovoLOG) PER UNIT SC SCH ×4 (08:09→19:58)
[2023-05-29] MEDS: LEVEMIR (INSULIN DETEMIR) 1 UNITS/0.01ML SC SCH ×2 (08:10→20:56)
[2023-05-29] MEDS: LIDOCAINE 5% (LIDODERM) PATCH TD SCH (08:10)
[2023-05-29] MEDS: DIAPER RELIEF PASTE (DESITIN) 60GM TOP SCH ×2 (08:11→20:57)
[2023-05-29 12:00] VITALS: O2SAT 91
[2023-05-29 14:00] VITALS: BP 145/55; TEMP 98.6; O2SAT 91
[2023-05-29] MEDS: BACLOFEN 5MG PER 1/2 TABLET PO PRN (15:04)
[2023-05-29] MEDS: ACETAMINOPHEN TAB 650MG DOSE (2X325MG) PO PRN ×2 (15:06→22:55)
[2023-05-29 15:20] VITALS: O2SAT 82
[2023-05-29] MEDS: PRAMIPEXOLE 0.25 MG TAB PO SCH (20:57)
[2023-05-30] MEDS: **hydrALAZINE HCL** 25 MG TAB PO SCH ×3 (05:32→22:30)
[2023-05-30 06:39] VITALS: BP 179/80; TEMP 97.9; O2SAT 97
[2023-05-30] MEDS: AUGMENTIN 875 MG TAB PO SCH ×2 (08:08→20:29)
[2023-05-30] MEDS: CLOPIDOGREL 75 MG TAB PO SCH (08:09)
[2023-05-30] MEDS: LOSARTAN 50MG TABLET PO SCH (08:11)
[2023-05-30] MEDS: ATORVASTATIN 20 MG TAB PO SCH (08:12)
[2023-05-30] MEDS: LACTOBACILLUS ACIDOPHILUS CAP (BACID) PO SCH ×4 (08:12→20:32)
[2023-05-30] MEDS: MULTIVITAMINS/MINERALS THERAP 1 TAB PO SCH (08:14)
[2023-05-30] MEDS: GABAPENTIN 300 MG CAP PO SCH ×4 (08:14→20:30)
[2023-05-30] MEDS: amLODIPine 5 MG TAB PO SCH (08:14)
[2023-05-30] MEDS: ASPIRIN 81MG ENTERIC TABLET PO SCH (08:15)
[2023-05-30] MEDS: ENOXAPARIN 40MG/0.4ML SYRINGE (J1650 PER 10MG) SC SCH (08:16)
[2023-05-30] MEDS: LEVEMIR (INSULIN DETEMIR) 1 UNITS/0.01ML SC SCH ×2 (08:17→20:31)
[2023-05-30] MEDS: INSULIN LISPRO (NovoLOG) PER UNIT SC SCH ×4 (08:18→20:14)
[2023-05-30] MEDS: LIDOCAINE 5% (LIDODERM) PATCH TD SCH (08:19)
[2023-05-30] MEDS: DIAPER RELIEF PASTE (DESITIN) 60GM TOP SCH ×2 (08:19→20:33)
[2023-05-30] MEDS: VITAMIN D 50,000 UNITS CAPSULE (ERGOCALCIFEROL 1.25MG) PO SCH (09:46)
[2023-05-30] MEDS: PRAMIPEXOLE 0.25 MG TAB PO SCH (20:30)
[2023-05-30] MEDS: FLUTICASONE PROP 0.05% NASAL SPRAY 16 GM (FLONASE) NARES SCH (20:31)
[2023-05-30] MEDS: ACETAMINOPHEN TAB 650MG DOSE (2X325MG) PO PRN (22:32)
[2023-05-31 05:55] VITALS: BP 156/72; TEMP 97.7; O2SAT 92
[2023-05-31] MEDS: **hydrALAZINE HCL** 25 MG TAB PO SCH ×3 (06:02→21:21)
[2023-05-31] MEDS: DIAPER RELIEF PASTE (DESITIN) 60GM TOP SCH ×2 (09:00→21:19)
[2023-05-31] MEDS: FLUTICASONE PROP 0.05% NASAL SPRAY 16 GM (FLONASE) NARES SCH ×2 (09:17→21:19)
[2023-05-31] MEDS: ENOXAPARIN 40MG/0.4ML SYRINGE (J1650 PER 10MG) SC SCH (09:18)
[2023-05-31] MEDS: INSULIN LISPRO (NovoLOG) PER UNIT SC SCH ×4 (09:18→21:00)
[2023-05-31] MEDS: LEVEMIR (INSULIN DETEMIR) 1 UNITS/0.01ML SC SCH ×2 (09:19→21:18)
[2023-05-31] MEDS: amLODIPine 5 MG TAB PO SCH (09:22)
[2023-05-31] MEDS: LACTOBACILLUS ACIDOPHILUS CAP (BACID) PO SCH ×4 (09:22→21:19)
[2023-05-31] MEDS: MULTIVITAMINS/MINERALS THERAP 1 TAB PO SCH (09:22)
[2023-05-31] MEDS: LIDOCAINE 5% (LIDODERM) PATCH TD SCH (09:22)
[2023-05-31] MEDS: AUGMENTIN 875 MG TAB PO SCH ×2 (09:23→21:18)
[2023-05-31] MEDS: ATORVASTATIN 20 MG TAB PO SCH (09:23)
[2023-05-31] MEDS: GABAPENTIN 300 MG CAP PO SCH ×4 (09:23→21:19)
[2023-05-31] MEDS: LOSARTAN 50MG TABLET PO SCH (09:24)
[2023-05-31] MEDS: CLOPIDOGREL 75 MG TAB PO SCH (09:24)
[2023-05-31] MEDS: ASPIRIN 81MG ENTERIC TABLET PO SCH (09:24)
[2023-05-31] MEDS ORDERED: ISOVUE-370 76% 100ML VIAL As Ordered ONE (10:11)
[2023-05-31] MEDS: ACETAMINOPHEN TAB 650MG DOSE (2X325MG) PO PRN (21:17)
[2023-05-31] MEDS: PRAMIPEXOLE 0.25 MG TAB PO SCH (21:18)
[2023-06-01] MEDS: **hydrALAZINE HCL** 25 MG TAB PO SCH ×3 (05:56→20:56)
[2023-06-01 06:00] VITALS: BP 158/75; TEMP 97.9; O2SAT 92
[2023-06-01 07:16] LABS: BLOOD UREA NITROGEN 12 MG/DL (9-23); CALCIUM LEVEL 8.2 MG/DL (8.3-10.6); CARBON DIOXIDE LEVEL 33 MMOL/L (20-31); CHLORIDE LEVEL 104 MMOL/L (98-107); CREATININE FOR GFR 0.76 MG/DL (0.55-1.30); GLOMERULAR FILTRATION RATE > 60.0 (>39); GLUCOSE, FASTING 102 MG/DL (74-106); POTASSIUM SERUM 4.3 MMOL/L (3.5-5.1); SODIUM LEVEL 142 MMOL/L (136-145)
[2023-06-01] MEDS: INSULIN LISPRO (NovoLOG) PER UNIT SC SCH ×4 (07:30→20:55)
[2023-06-01] MEDS: ASPIRIN 81MG ENTERIC TABLET PO SCH (07:34)
[2023-06-01] MEDS: GABAPENTIN 300 MG CAP PO SCH ×4 (07:34→20:53)
[2023-06-01] MEDS: CLOPIDOGREL 75 MG TAB PO SCH (07:34)
[2023-06-01] MEDS: MULTIVITAMINS/MINERALS THERAP 1 TAB PO SCH (07:34)
[2023-06-01] MEDS: AUGMENTIN 875 MG TAB PO SCH ×2 (07:34→20:53)
[2023-06-01] MEDS: LEVEMIR (INSULIN DETEMIR) 1 UNITS/0.01ML SC SCH ×2 (07:34→20:53)
[2023-06-01] MEDS: LACTOBACILLUS ACIDOPHILUS CAP (BACID) PO SCH ×4 (07:34→20:53)
[2023-06-01] MEDS: FLUTICASONE PROP 0.05% NASAL SPRAY 16 GM (FLONASE) NARES SCH ×2 (07:35→20:54)
[2023-06-01] MEDS: amLODIPine 5 MG TAB PO SCH (07:35)
[2023-06-01] MEDS: LOSARTAN 50MG TABLET PO SCH (07:35)
[2023-06-01] MEDS: ATORVASTATIN 20 MG TAB PO SCH (07:35)
[2023-06-01] MEDS: ENOXAPARIN 40MG/0.4ML SYRINGE (J1650 PER 10MG) SC SCH (07:35)
[2023-06-01] MEDS: LIDOCAINE 5% (LIDODERM) PATCH TD SCH (07:36)
[2023-06-01] MEDS: DIAPER RELIEF PASTE (DESITIN) 60GM TOP SCH ×2 (07:36→20:54)
[2023-06-01] MEDS: ACETAMINOPHEN TAB 650MG DOSE (2X325MG) PO PRN ×2 (10:00→20:53)
[2023-06-01] MEDS: PRAMIPEXOLE 0.25 MG TAB PO SCH (20:53)
[2023-06-02] MEDS: **hydrALAZINE HCL** 25 MG TAB PO SCH (05:32)
[2023-06-02 06:00] VITALS: BP 178/75; TEMP 97.7; O2SAT 96
[2023-06-02] MEDS: LIDOCAINE 5% (LIDODERM) PATCH TD SCH (07:27)
[2023-06-02] MEDS: AUGMENTIN 875 MG TAB PO SCH (07:28)
[2023-06-02] MEDS: amLODIPine 5 MG TAB PO SCH (07:28)
[2023-06-02] MEDS: CLOPIDOGREL 75 MG TAB PO SCH (07:28)
[2023-06-02] MEDS: MULTIVITAMINS/MINERALS THERAP 1 TAB PO SCH (07:28)
[2023-06-02] MEDS: ACETAMINOPHEN TAB 650MG DOSE (2X325MG) PO PRN (07:28)
[2023-06-02] MEDS: ENOXAPARIN 40MG/0.4ML SYRINGE (J1650 PER 10MG) SC SCH (07:29)
[2023-06-02] MEDS: LACTOBACILLUS ACIDOPHILUS CAP (BACID) PO SCH (07:29)
[2023-06-02] MEDS: ATORVASTATIN 20 MG TAB PO SCH (07:29)
[2023-06-02] MEDS: GABAPENTIN 300 MG CAP PO SCH (07:29)
[2023-06-02 07:30] VITALS: BP 178/75
[2023-06-02] MEDS: LOSARTAN 50MG TABLET PO SCH (07:30)
[2023-06-02] MEDS: INSULIN LISPRO (NovoLOG) PER UNIT SC SCH (07:30)
[2023-06-02] MEDS: ASPIRIN 81MG ENTERIC TABLET PO SCH (07:30)
[2023-06-02] MEDS: FLUTICASONE PROP 0.05% NASAL SPRAY 16 GM (FLONASE) NARES SCH (07:31)
[2023-06-02] MEDS: LEVEMIR (INSULIN DETEMIR) 1 UNITS/0.01ML SC SCH (07:31)
[2023-06-02] MEDS: DIAPER RELIEF PASTE (DESITIN) 60GM TOP SCH (07:31)
== END 2023-06-02 11:00 | disposition home or self-care (01) | DRG 854 ==
LOC: M MS5PR 14:32
PROVIDERS: ADMIT Internal Medicine; ATTEND Internal Medicine
PROC: 0Y6V0Z0 Detachment at Right 4th Toe, Complete, Open Approach (ICD-10-PCS; principal; 2023-05-13 16:30)
PROC: 0JBQ0ZZ Excision of Right Foot Subcutaneous Tissue and Fascia, Open Approach (ICD-10-PCS; 2023-05-20)
PROC: 0LBV0ZZ Excision of Right Foot Tendon, Open Approach (ICD-10-PCS; 2023-05-20)
PROC: 047M3ZZ Dilation of Right Popliteal Artery, Percutaneous Approach (ICD-10-PCS; 2023-05-24)
PROC: 047V3ZZ Dilation of Right Foot Artery, Percutaneous Approach (ICD-10-PCS; 2023-05-24)
DX: A41.9 Sepsis, unspecified organism (principal); E11.52 Type 2 diabetes mellitus with diabetic peripheral angiopathy with gangrene; M86.172 Other acute osteomyelitis, left ankle and foot; E87.20 Acidosis, unspecified; M19.90 Unspecified osteoarthritis, unspecified site; E11.319 Type 2 diabetes mellitus with unspecified diabetic retinopathy without macular edema; I10 Essential (primary) hypertension; G25.81 Restless legs syndrome; E78.5 Hyperlipidemia, unspecified; B96.1 Klebsiella pneumoniae [K. pneumoniae] as the cause of diseases classified elsewhere; B95.61 Methicillin susceptible Staphylococcus aureus infection as the cause of diseases classified elsewhere; D63.8 Anemia in other chronic diseases classified elsewhere; I65.23 Occlusion and stenosis of bilateral carotid arteries; Z79.899 Other long term (current) drug therapy; Z79.4 Long term (current) use of insulin; E11.621 Type 2 diabetes mellitus with foot ulcer; L97.519 Non-pressure chronic ulcer of other part of right foot with unspecified severity; G89.29 Other chronic pain; E55.9 Vitamin D deficiency, unspecified; E11.22 Type 2 diabetes mellitus with diabetic chronic kidney disease; R04.0 Epistaxis